=== PATIENT | female | born 1995 | race Caucasian/White ===

== ENCOUNTER 2020-09-18 15:08 | Emergency (ER) | payer OTHER ==
--- OUTSIDE RECORDS SUMMARY | 2020-09-18 15:12 | XMS REPORT | Continuity of Care Document ---
:[address] [facility] t Address 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 Social History Smoking Status Start Date Stop Date Source Former Smoker [facility] Medications Ordered Filled Start Stop Current Ordering Indication Dosage Frequency Signature Comments Components Source Medication Medication Date Date Medication? Clinician (SIG) Name Name Nexplanon Nexplanon No Nexplanon [place] 68 mg 68 mg 4-19 68 mg da subdermal subdermal 14:05: subdermal [facility] implant[facility] implant[facility]je [address] 1 ect 1 implant by implant by implant by subcutaneou subcutaneou subcutaneo s route. s route. us route. bupropion bupropion No 1 Q1D bupropion [place] HCl XL 150 HCl XL 150 HCl XL 150 da mg 24 hr mg 24 hr mg 24 hr Med ical tablet, tablet, tablet, Group extended extended extended release release release Take 1 Take 1 Take 1 tablet tablet tablet every day every day every day by oral by oral by oral route. route. route. Nexplanon Nexplanon No 1implan Nexplanon [place] 68 mg 68 mg t(s) 68 mg da subdermal subdermal subdermal Medical implant implant implant Group Inject 1 Inject 1 Inject 1 implant by implant by implant by subcutaneou subcutaneou subcutaneo s route. s route. us route. Vital Signs Vital Name Observation Time Observation Value Comments Source BP Diastolic 2020-08-27 00:00:00 79 mm[Hg] [facility] Height 2020-08-27 00:00:00 63 [in_i] [facility] BMI (Body Mass 2020-08-27 00:00:00 16.9 kg/m2 [facility] [employer] [facility] Medical Index) Group BP Systolic 2020-08-27 00:00:00 129 mm[Hg] [facility] Body Weight 2020-08-27 00:00:00 95.2 [lb_av] [facility] BP Diastolic 2020-07-31 00:00:00 88 mm[Hg] [facility] Height 2020-07-31 00:00:00 63 [in_i] [facility] BMI (Body Mass 2020-07-31 00:00:00 18 kg/m2 [facility] [employer] [facility] Medical Index) Group BP Systolic 2020-07-31 00:00:00 134 mm[Hg] [facility] Body Weight 2020-07-31 00:00:00 101.4 [lb_av] [facility] BP Diastolic 2020-05-01 00:00:00 88 mm[Hg] [facility] Height 2020-05-01 00:00:00 63 [in_i] [facility] BMI (Body Mass 2020-05-01 00:00:00 23.7 kg/m2 [facility] [employer] [facility] Medical Index) Group BP Systolic 2020-05-01 00:00:00 128 mm[Hg] [facility] Body Weight 2020-05-01 00:00:00 133.6 [lb_av] [facility] BP Diastolic 2020-04-26 00:00:00 79 mm[Hg] [facility] Height 2020-04-26 00:00:00 63 [in_i] [facility] BMI (Body Mass 2020-04-26 00:00:00 [facility] [facility] BP Systolic 2020-04-26 00:00:00 121 mm[Hg] [facility] Body Weight 2020-04-26 00:00:00 132 [lb_av] [facility] BP Diastolic 2020-04-16 00:00:00 63 mm[Hg] [facility] Height 2020-04-16 00:00:00 63 [in_i] [facility] BMI (Body Mass 2020-04-16 00:00:00 22.5 kg/m2 [facility] [employer] [facility] Medical Index) Group BP Systolic 2020-04-16 00:00:00 134 mm[Hg] [facility] Body Weight 2020-04-16 00:00:00 127 [lb_av] [facility] BP Diastolic 2020-03-30 00:00:00 85 mm[Hg] [facility] Height 2020-03-30 00:00:00 63 [in_i] [facility] BMI (Body Mass 2020-03-30 00:00:00 21.4 kg/m2 [facility] Medical Index) Group BP Systolic 2020-03-30 00:00:00 136 mm[Hg] [facility] Body Weight 2020-03-30 00:00:00 121 [lb_av] [facility] BP Diastolic 2020-02-24 00:00:00 74 mm[Hg] [facility] Height 2020-02-24 00:00:00 63 [in_i] [facility] BMI (Body Mass 2020-02-24 00:00:00 21.9 kg/m2 [facility] Medical Index) Group BP Systolic 2020-02-24 00:00:00 120 mm[Hg] [facility] Body Weight 2020-02-24 00:00:00 123.4 [lb_av] [facility] BP Diastolic 2018-11-25 00:00:00 81 mm[Hg] [facility] Height 2018-11-25 00:00:00 63 [in_i] [facility] BMI (Body Mass 2018-11-25 00:00:00 22.7 kg/m2 [facility] Medical Index) Group BP Systolic 2018-11-25 00:00:00 125 mm[Hg] [facility] Body Weight 2018-11-25 00:00:00 127.9 [lb_av] [facility] BP Diastolic 2018-11-18 00:00:00 83 mm[Hg] [facility] Height 2018-11-18 00:00:00 63 [in_i] [facility] BMI (Body Mass 2018-11-18 00:00:00 22.3 kg/m2 [facility] Group BP Systolic 2018-11-18 00:00:00 130 mm[Hg] [facility] Body Weight 2018-11-18 00:00:00 126 [lb_av] [facility] BP Diastolic 2018-11-04 00:00:00 72 mm[Hg] [facility] Height 2018-11-04 00:00:00 63 [in_i] [facility] BMI (Body Mass 2018-11-04 00:00:00 22.3 kg/m2 [facility] Medical Index) Group BP Systolic 2018-11-04 00:00:00 115 mm[Hg] [facility] Body Weight 2018-11-04 00:00:00 126.1 [lb_av] [facility] BP Diastolic 2018-10-28 00:00:00 76 mm[Hg] [facility] Height 2018-10-28 00:00:00 63 [in_i] [facility] BMI (Body Mass 2018-10-28 00:00:00 22.3 kg/m2 [facility] Medical Index) Group BP Systolic 2018-10-28 00:00:00 121 mm[Hg] [facility] Body Weight 2018-10-28 00:00:00 125.9 [lb_av] [facility] BP Diastolic 2018-10-21 00:00:00 78 mm[Hg] [facility] Height 2018-10-21 00:00:00 63 [in_i] [facility] BMI (Body Mass 2018-10-21 00:00:00 22 kg/m2 [facility] Medical Index) Group BP Systolic 2018-10-21 00:00:00 114 mm[Hg] [facility] Body Weight 2018-10-21 00:00:00 124 [lb_av] [facility] BP Diastolic 2018-07-19 00:00:00 84 mm[Hg] [facility] Height 2018-07-19 00:00:00 63 [in_i] [facility] BMI (Body Mass 2018-07-19 00:00:00 23.2 kg/m2 [facility] Medical Index) Group BP Systolic 2018-07-19 00:00:00 129 mm[Hg] [facility] Body Weight 2018-07-19 00:00:00 131 [lb_av] [facility] Procedures Procedure Date / Time Performing Clinician Source Performed US, obstetric, limited 2020-04-26 00:00:00 [facility] US, obstetric, limited 2020-03-30 00:00:00 [facility] ULTRASOUND, 2020-02-24 [facility] WITH Group IMAGE DOC, AND MATERNAL EVAL PLUS DETAILED ANATOMIC EXAMINATION, TRANSABDOMINAL APPROACH; SINGLE OR FIRST GESTATION US, transvaginal 2018-11-25 00:00:00 [facility] Dilation & Curettage 2018-11-19 00:00:00 Jennifer [facility] (Surg) Group ULTRASOUND, 2018-11-04 [facility] WITH Group IMAGE DOCUMENTAITON, TRANSVAGINAL Plan of Care Planned Activity Planned Date Details Comments Source Diagnostic Test 2020-08-27 test, [facility] 00:00:00 urine [code = Group test, urine] Encounters Start End Encounter Admission Attending Care Care Encounter Source Date/Time Date/Time Type Type Clinicians Facility Department ID 2020-08-27 2020-08-27 Tod MURILLO [place] - [id number] M [facility] 00:00:00 00:00:00 [facility] xochitl Guadalupe MD: [address] [place] [address] , Ph. [phone] 2020-07-31 2020-07-31 Tod MURILLO [place] - [id number] Cathy [facility] 00:00:00 00:00:00 [facility] xochitl Guadalupe MD: [address] [place] [address] , Ph. [phone] 2020-07-23 2020-07-23 Emergency Carl, [facility] [id number] 19:13:00 23:08:00 Rashad Hale [id number] [place] [id number] [place] [id number] 2020-05-01 2020-05-01 Tod MURILLO [place] - [id number] M [facility] 00:00:00 00:00:00 Discovery xochitl Guadalupe MD: [address] [place] [address] , Ph. [phone] 2020-04-26 2020-04-26 Tod MURILLO [place] - [id number] M [facility] 00:00:00 00:00:00 Discovery xochitl Guadalupe MD: [address] [place] [address] , Ph. [phone] 2020-04-21 2020-04-22 Hospital Lore Cooper [facility] [id number] 23:10:00 08:10:00 Encounter Geoffrey [id number] [place] [id number] [place] [id number] 2020-04-16 2020-04-16 Tod MURILLO [place] - [id number] M [facility] 00:00:00 00:00:00 Discovery xochitl Guadalupe MD: [address] [place] [address] , Ph. [phone] 2020-04-13 2020-04-13 [facility] [id number] 09:17:00 13:55:00 Encounter Susan Beebe Geoffrey [id number] [place] [id number] [place] [id number] 2020-04-13 2020-04-13 Orders Doctor BAUGH [id number] 00:00:00 00:00:00 Only Unassigned, KEVEN [id number] [place] [id number] 2020-03-30 2020-03-30 Tod MURILLO [place] - [id number] M [facility] 00:00:00 00:00:00 Discovery xochitl Guadalupe MD: [address] [place] [address] , Ph. [phone] 2020-02-24 2020-02-24 Tod MURILLO [place] - [id number] M [facility] 00:00:00 00:00:00 Discovery xochitl Guadalupe MD: [address] [place] [address] , Ph. [phone] 2018-11-25 2018-11-25 Tod MURILLO [place] - [id number] M [facility] 00:00:00 00:00:00 Discovery xochitl Guadalupe MD: [address] [place] [address] , Ph. [phone] 2018-11-18 2018-11-18 Tod MURILLO [place] - [id number] M [facility] 00:00:00 00:00:00 Discovery xochitl Guadalupe MD: [address] [place] [address] , Ph. [phone] 2018-11-04 2018-11-04 Tod MURILLO [place] - [id number] M [facility] 00:00:00 00:00:00 Discovery xochitl Guadalupe MD: [address] [place] [address] , Ph. [phone] 2018-10-28 2018-10-28 Tod MURILLO [place] - [id number] M [facility] 00:00:00 00:00:00 Discovery xochitl Guadalupe MD: [address] [place] [address] , Ph. [phone] 2018-10-21 2018-10-21 Ирина VU [place] - [id number] M [facility] 00:00:00 00:00:00 [facility] keely MD: [address] [place] [address] , Ph. [phone] 2018-07-19 2018-07-19 Danita Godwin [facility] [place] - [id number] [place] 00:00:00 00:00:00 Discovery xochitl Loza WHNP: [address] [facility] [address], [facility] [address] , Ph. [phone] Results Test Description Test Time Test Comments Results Result Comments Source test, urine 2020-08-27 14:10:18 Test Item Value Reference Range Interpretation Comme nts Test (test code = Test) negative [facility]dipstick) panel - [id number] 15:37:00 Test Item Value Reference Range Interpretation Comments Leukocytes (test code = Leukocytes) Trace Nitrite (test code = Nitrite) negative Urobilinogen (test code = 2 Urobilinogen) Protein (test code = Protein) 30 pH (test code = pH) 6.0 Blood (test code = Blood) Negative Specific [place] (test code = 1.025 Specific [place]) Ketone (test code = Ketone) Trace Bilirubin (test code = Bilirubin) Small Glucose (test code = Glucose) 100 Appearance (test code = Appearance) Clear Color (test code = Color) Yellow [facility] complete panel - [id number] 07:30:00 Test Item Value Reference Range Interpretation Comments Color of Urine by Auto (test code = yellow 06111-4) Appearance of Urine (test code = SL cloudy clear A 5767-9) Glucose [Presence] in Urine by negative negative Automated test strip (test code = 80889-5) Bilirubin.total [Mass/volume] in negative negative Urine (test code = 1978-6) Ketones [Mass/volume] in Urine by negative negative Automated test strip (test code = 86652-3) Specific gravity of Urine by 1.025 1.003-1.030 Automated test strip (test code = 76429-6) blood urine (test code = blood trace negative urine) pH of Urine (test code = 2756-5) 6.500 5-9 protein urine (UA) (test code = trace negative protein urine (UA)) Urobilinogen [Presence] in Urine =2.0 0.2-1.0 H (test code = 21294-1) Nitrite [Presence] in Urine by Test negative negative strip (test code = 5802-4) Leukocyte esterase [Presence] in =3 negative H Urine by Automated test strip (test code = 98030-0) Erythrocytes [#/volume] in Urine by =1-5 0-5 Automated count (test code = 798-9) Leukocytes [#/area] in Urine =6-10 0-5 H sediment by Automated count (test code = 95154-0) Epithelial cells [Presence] in =30-49 0-5 Urine sediment by Light microscopy (test code = 02571-0) Bacteria identified in Urine by large (3 none detect H Culture (test code = 630-4) Casts [#/area] in Urine sediment by =2-5 none detect Automated count (test code = 78511-3) urine culture added? (test code = yes urine culture added?) [facility] Group[facility] complete panel - [id number] 07:00:00 Test Item Value Reference Range Interpretation Comments Color of Urine by Auto yellow (test code = 69291-6) Appearance of Urine (test SL cloudy clear A code = 5767-9) Glucose [Presence] in Urine negative negative by Automated test strip (test code = 21596-1) Bilirubin.total negative negative [Mass/volume] in Urine (test code = 1978-6) Ketones [Mass/volume] in negative negative Urine by Automated test strip (test code = 15822-7) Specific gravity of Urine 1.026 1.003-1.030 by Automated test strip (test code = 82795-5) blood urine (test code = negative negative blood urine) pH of Urine (test code = 7.000 5-9 2756-5) protein urine (UA) (test =1+ (30 negative H code = protein urine (UA)) Urobilinogen [Presence] in =2.0 0.2-1.0 H Urine (test code = 70463-7) Nitrite [Presence] in Urine negative negative by Test strip (test code = 5802-4) Leukocyte esterase =3 negative H [Presence] in Urine by Automated test strip (test code = 36940-3) Erythrocytes [#/volume] in =1-5 0-5 Urine by Automated count (test code = 798-9) Leukocytes [#/area] in =11-14 0-5 H Urine sediment by Automated count (test code = 19656-0) Epithelial cells [Presence] =20-29 0-5 in Urine sediment by Light microscopy (test code = 77613-8) Bacteria identified in moderate (2 none detect H Urine by Culture (test code = 630-4) Casts [#/area] in Urine =6-10 none detect H sediment by Automated count (test code = 45751-3) urine culture added? (test no. contaminated. code = urine culture added?) Pathologic casts [Presence] none seen none detect in Urine by Automated (test code = 44866-2) [facility] macro (dipstick) panel - [id number] 14:22:34 Test Item Value Reference Range Interpretation Comments Leukocytes (test code = Leukocytes) Negative Nitrite (test code = Nitrite) negative Urobilinogen (test code = 2 Urobilinogen) Protein (test code = Protein) 30 pH (test code = pH) 7.5 Blood (test code = Blood) Negative Specific [place] (test code = 1.020 Specific [place]) Ketone (test code = Ketone) Small Bilirubin (test code = Bilirubin) Small Glucose (test code = Glucose) 100 Appearance (test code = Appearance) Clear Color (test code = Color) Yellow [facility] macro (dipstick) panel - [id number] 14:22:34 Test Item Value Reference Range Interpretation Comments Leukocytes (test code = Leukocytes) Negative Nitrite (test code = Nitrite) negative Urobilinogen (test code = 2 Urobilinogen) Protein (test code = Protein) 30 pH (test code = pH) 7.5 Blood (test code = Blood) Negative Specific [place] (test code = 1.020 Specific [place]) Ketone (test code = Ketone) Small Bilirubin (test code = Bilirubin) Small Glucose (test code = Glucose) 100 Appearance (test code = Appearance) Clear Color (test code = Color) Yellow [facility] Hospital[facility] W Auto Differential panel - [id number] 02:04:00 Test Item Value Reference Range Interpretation Comments white blood count (test code = 7.5 K/uL 4.0-11.5 white blood count) red blood count (test code = red 3.35 M/uL 3.80-5.20 L blood count) hemoglobin (test code = 9.6 g/dL 10.5-15.7 L hemoglobin) hematocrit (test code = 30.0 % 34.0-50.0 L hematocrit) MCV [Entitic volume] (test code = 89.6 fL 86-100 00635-5) mean corpuscular hemoglobin (test 28.7 pg 26.2-33.4 code = mean corpuscular hemoglobin) mean corpuscular HGB conc (test 32.0 g/dL 30-34 code = mean corpuscular HGB conc) red cell distribution width (test 11.9 % 12.0-15.5 L code = red cell distribution width) platelet count (test code = 283 K/uL 165-450 platelet count) mean platelet volume (test code = 10.9 fL 9.4-12.6 mean platelet volume) Segmented neutrophils/100 72.2 % 44.4-80.1 leukocytes in Blood (test code = 12905-7) Immature granulocytes [#/volume] 0.0 K/uL 0.0-0.03 in Blood (test code = 71248-1) lymphocyte% (test code = 18.9 % 10.0-50.0 lymphocyte%) mono % (test code = mono %) 6.7 % 3.6-12.0 eos % (test code = eos %) 1.5 % 0.0-5.4 Basophils/100 leukocytes in 0.3 % 0.1-1.2 Unspecified specimen (test code = 35335-1) Band form neutrophils [#/volume] 5.39 K/uL 1.56-6.13 in Blood (test code = 77837-5) Lymphocytes [#/volume] in 1.4 K/uL 1.18-3.74 Unspecified specimen by Automated count (test code = 17906-2) mono # (test code = mono #) 0.50 K/uL 0.24-0.86 eos # (test code = eos #) 0.11 K/uL 0.04-0.36 basophil # (test code = basophil 0.02 K/uL 0.01-0.08 #) NRBC% (test code = NRBC%) 0 /100 WBC 0-0.2 NRBC# (test code = NRBC#) 0 K/uL [facility] GroupMicroscopic observation [Identifier] in Unspecified specimen by Wet [id number] 03:50:00 Test Item Value Reference Range Interpretation Comments Microscopic observation no trichomonas, [Identifier] in yeast or clue cell Unspecified specimen by observed. Wet preparation (test code = 680-9) [facility] Hospital[facility]lamydia trachomatis+Neisseria gonorrhoeae rRNA [Presence] in Unspecified specimen by [id number] 03:50:00 Test Item Value Reference Range Interpretation Comments Chlamydia sp Ag [Presence] in CT not detected Unspecified specimen (test code = 50603-1) [id number] (test code = exu9619) NG not detected [facility] HospitalKlgysDtmij-1-Ishydjkhddpou.placental [Presence] in Vaginal [id number] 02:38:00 Test Item Value Reference Range Interpretation Comments Ufpih-4-Kgucnypktbqck.placental negative neg [Presence] in Vaginal fluid (test code = 30463-2) [facility] Hospital[facility]ysis complete panel - [id number] 02:38:00 Test Item Value Reference Range Interpretation Comments Color of Urine by Auto (test yellow code = 43003-3) Appearance of Urine (test code clear clear = 5767-9) Glucose [Presence] in Urine by negative negative Automated test strip (test code = 59491-7) Bilirubin.total [Mass/volume] negative negative in Urine (test code = 1978-6) Ketones [Mass/volume] in Urine negative negative by Automated test strip (test code = 02455-2) Specific gravity of Urine by 1.019 1.003-1.030 Automated test strip (test code = 87193-6) blood urine (test code = blood negative negative urine) pH of Urine (test code = 7.500 5-9 2756-5) protein urine (UA) (test code = trace negative protein urine (UA)) Urobilinogen [Presence] in =2.0 0.2-1.0 H Urine (test code = 30162-6) Nitrite [Presence] in Urine by negative negative Test strip (test code = 5802-4) Leukocyte esterase [Presence] negative negative in Urine by Automated test strip (test code = 19202-0) Erythrocytes [#/volume] in <1 0-5 Urine by Automated count (test code = 798-9) Leukocytes [#/area] in Urine <1 0-5 sediment by Automated count (test code = 28828-9) Epithelial cells [Presence] in =1-5 0-5 Urine sediment by Light microscopy (test code = 31349-3) Bacteria identified in Urine by none detected none detect Culture (test code = 630-4) Casts [#/area] in Urine =2-5 none detect sediment by Automated count (test code = 23099-7) urine culture added? (test code no = urine culture added?) [facility] HospitalVjlteIofmm-7-Gebnrbkgvkyfe.placental [Presence] in Vaginal [id number] 02:38:00 Test Item Value Reference Range Interpretation Comments Rohar-8-Owlugmmbmhhni.placental negative neg [Presence] in Vaginal fluid (test code = 31901-1) [facility] HospitalUr[facility]ysis complete panel - [id number] 02:38:00 Test Item Value Reference Range Interpretation Comments Color of Urine by Auto (test yellow code = 72556-1) Appearance of Urine (test code clear clear = 5767-9) Glucose [Presence] in Urine by negative negative Automated test strip (test code = 90321-1) Bilirubin.total [Mass/volume] negative negative in Urine (test code = 1978-6) Ketones [Mass/volume] in Urine negative negative by Automated test strip (test code = 49631-2) Specific gravity of Urine by 1.019 1.003-1.030 Automated test strip (test code = 53450-6) blood urine (test code = blood negative negative urine) pH of Urine (test code = 7.500 5-9 2756-5) protein urine (UA) (test code = trace negative protein urine (UA)) Urobilinogen [Presence] in =2.0 0.2-1.0 H Urine (test code = 68815-3) Nitrite [Presence] in Urine by negative negative Test strip (test code = 5802-4) Leukocyte esterase [Presence] negative negative in Urine by Automated test strip (test code = 16706-1) Erythrocytes [#/volume] in <1 0-5 Urine by Automated count (test code = 798-9) Leukocytes [#/area] in Urine <1 0-5 sediment by Automated count (test code = 95069-0) Epithelial cells [Presence] in =1-5 0-5 Urine sediment by Light microscopy (test code = 40688-9) Bacteria identified in Urine by none detected none detect Culture (test code = 630-4) Casts [#/area] in Urine =2-5 none detect sediment by Automated count (test code = 83923-1) urine culture added? (test code no = urine culture added?) [facility] [Mass/volume] in Serum or Plasma --1 hour post dose [id number] 16:04:00 Test Item Value Reference Range Interpretation Comments Results (test code = Results) 126 [facility] GroupGlucose [Mass/volume] in Serum or Plasma --1 hour post dose [id number] 16:04:00 Test Item Value Reference Range Interpretation Comments Results (test code = Results) 126 [facility] GroupGlucose [Mass/volume] in Serum or Plasma --1 hour post dose [id number] 16:04:00 Test Item Value Reference Range Interpretation Comments Results (test code = Results) 126 [facility] Groupculture, vaginal/rectal, streptococcus group [id number] 00:00:00 Test Item Value Reference Range Interpretation Comments group B strep (test abnormal A code = group B strep) group B strep rflx please see A sens if pos (test results/comment code = group B strep rflx sens if pos) [facility] Groupculture, vaginal/rectal, streptococcus group [id number] 00:00:00 Test Item Value Reference Range Interpretation Comments group B strep (test abnormal A code = group B strep) group B strep rflx please see A sens if pos (test results/comment code = group B strep rflx sens if pos) [facility] GroupUrinalysis macro (dipstick) panel - [id number] 15:41:10 Test Item Value Reference Range Interpretation Comments Leukocytes (test code = Trace Leukocytes) Nitrite (test code = negative Nitrite) Urobilinogen (test code = 2 Urobilinogen) Protein (test code = 30 Protein) pH (test code = pH) 7.0 Blood (test code = Blood) Non-Hemolyzed: Trace Specific [place] (test 1.025 code = Specific [place]) Ketone (test code = Negative Ketone) Bilirubin (test code = Negative Bilirubin) Glucose (test code = Negative Glucose) Appearance (test code = Clear Appearance) Color (test code = Color) Yellow [facility]dipstick[facility] panel - [id number] 15:41:10 Test Item Value Reference Range Interpretation Comments Leukocytes (test code = Trace Leukocytes) Nitrite (test code = negative Nitrite) Urobilinogen (test code = 2 Urobilinogen) Protein (test code = 30 Protein) pH (test code = pH) 7.0 Blood (test code = Blood) Non-Hemolyzed: Trace Specific [place] (test 1.025 code = Specific [place]) Ketone (test code = Negative Ketone) Bilirubin (test code = Negative Bilirubin) Glucose (test code = Negative Glucose) Appearance (test code = Clear Appearance) Color (test code = Color) Yellow [facility] (dipstick) panel - [id number] 15:41:10 Test Item Value Reference Range Interpretation Comments Leukocytes (test code = Trace Leukocytes) Nitrite (test code = negative Nitrite) Urobilinogen (test code = 2 Urobilinogen) Protein (test code = 30 Protein) pH (test code = pH) 7.0 Blood (test code = Blood) Non-Hemolyzed: Trace Specific [place] (test 1.025 code = Specific [place]) Ketone (test code = Negative Ketone) Bilirubin (test code = Negative Bilirubin) Glucose (test code = Negative Glucose) Appearance (test code = Clear Appearance) Color (test code = Color) [facility] W Auto Differential panel - [id number] 02:55:00 Test Item Value Reference Range Interpretation Comments white blood count (test code = 7.2 K/uL 4.0-11.5 white blood count) red blood count (test code = red 3.07 M/uL 3.80-5.20 L blood count) hemoglobin (test code = 9.4 g/dL 10.5-15.7 L hemoglobin) hematocrit (test code = 28.6 % 34.0-50.0 L hematocrit) MCV [Entitic volume] (test code = 93.2 fL 86-100 55361-2) mean corpuscular hemoglobin (test 30.6 pg 26.2-33.4 code = mean corpuscular hemoglobin) mean corpuscular HGB conc (test 32.9 g/dL 30-34 code = mean corpuscular HGB conc) red cell distribution width (test 11.8 % 12.0-15.5 L code = red cell distribution width) platelet count (test code = 279 K/uL 165-450 platelet count) mean platelet volume (test code = 9.7 fL 9.4-12.6 mean platelet volume) Segmented neutrophils/100 75.2 % 44.4-80.1 leukocytes in Blood (test code = 29861-2) Immature granulocytes [#/volume] 0.0 K/uL 0.0-0.03 in Blood (test code = 82761-5) lymphocyte% (test code = 19.4 % 10.0-50.0 lymphocyte%) mono % (test code = mono %) 4.3 % 3.6-12.0 eos % (test code = eos %) 0.7 % 0.0-5.4 Basophils/100 leukocytes in 0.1 % 0.1-1.2 Unspecified specimen (test code = 67572-0) Band form neutrophils [#/volume] 5.44 K/uL 1.56-6.13 in Blood (test code = 99381-3) Lymphocytes [#/volume] in 1.4 K/uL 1.18-3.74 Unspecified specimen by Automated count (test code = 51610-8) mono # (test code = mono #) 0.31 K/uL 0.24-0.86 eos # (test code = eos #) 0.05 K/uL 0.04-0.36 basophil # (test code = basophil 0.01 K/uL 0.01-0.08 #) NRBC% (test code = NRBC%) 0 /100 WBC 0-0.2 NRBC# (test code = NRBC#) 0 K/uL [facility] W Auto Differential panel - [id number] 02:55:00 Test Item Value Reference Range Interpretation Comments white blood count (test code = 7.2 K/uL 4.0-11.5 white blood count) red blood count (test code = red 3.07 M/uL 3.80-5.20 L blood count) hemoglobin (test code = 9.4 g/dL 10.5-15.7 L hemoglobin) hematocrit (test code = 28.6 % 34.0-50.0 L hematocrit) MCV [Entitic volume] (test code = 93.2 fL 86-100 26245-8) mean corpuscular hemoglobin (test 30.6 pg 26.2-33.4 code = mean corpuscular hemoglobin) mean corpuscular HGB conc (test 32.9 g/dL 30-34 code = mean corpuscular HGB conc) red cell distribution width (test 11.8 % 12.0-15.5 L code = red cell distribution width) platelet count (test code = 279 K/uL 165-450 platelet count) mean platelet volume (test code = 9.7 fL 9.4-12.6 mean platelet volume) Segmented neutrophils/100 75.2 % 44.4-80.1 leukocytes in Blood (test code = 58043-1) Immature granulocytes [#/volume] 0.0 K/uL 0.0-0.03 in Blood (test code = 38392-0) lymphocyte% (test code = 19.4 % 10.0-50.0 lymphocyte%) mono % (test code = mono %) 4.3 % 3.6-12.0 eos % (test code = eos %) 0.7 % 0.0-5.4 Basophils/100 leukocytes in 0.1 % 0.1-1.2 Unspecified specimen (test code = 70591-9) Band form neutrophils [#/volume] 5.44 K/uL 1.56-6.13 in Blood (test code = 89992-7) Lymphocytes [#/volume] in 1.4 K/uL 1.18-3.74 Unspecified specimen by Automated count (test code = 99388-3) mono # (test code = mono #) 0.31 K/uL 0.24-0.86 eos # (test code = eos #) 0.05 K/uL 0.04-0.36 basophil # (test code = basophil 0.01 K/uL 0.01-0.08 #) NRBC% (test code = NRBC%) 0 /100 WBC 0-0.2 NRBC# (test code = NRBC#) 0 K/uL [facility] - [id number] 11:00:00 Test Item Value Reference Range Interpretation Comments Color of Urine by Auto (test code = yellow 46170-5) Appearance of Urine (test code = clear clear 5767-9) Glucose [Presence] in Urine by negative negative Automated test strip (test code = 56212-7) Bilirubin.total [Mass/volume] in negative negative Urine (test code = 1978-6) Ketones [Mass/volume] in Urine by negative negative Automated test strip (test code = 21345-6) Specific gravity of Urine by 1.026 1.003-1.030 Automated test strip (test code = 43472-9) blood urine (test code = blood negative negative urine) pH of Urine (test code = 2756-5) 6.500 5-9 protein urine (UA) (test code = trace negative protein urine (UA)) Urobilinogen [Presence] in Urine =2.0 0.2-1.0 H (test code = 40310-6) Nitrite [Presence] in Urine by Test negative negative strip (test code = 5802-4) Leukocyte esterase [Presence] in =2 negative H Urine by Automated test strip (test code = 59967-2) Erythrocytes [#/volume] in Urine by =1-5 0-5 Automated count (test code = 798-9) Leukocytes [#/area] in Urine =1-5 0-5 sediment by Automated count (test code = 70917-1) Epithelial cells [Presence] in Urine =6-10 0-5 sediment by Light microscopy (test code = 81268-8) Bacteria identified in Urine by trace none detect Culture (test code = 630-4) urine culture added? (test code = yes urine culture added?) Mucus [Presence] in Urine by =2 none detect Automated (test code = 60204-2) [facility] identified in Urine by [id number] 11:00:00 Test Item Value Reference Range Interpretation Comments Bacteria identified in no growth after 2 Urine by Culture (test days code = 630-4) [facility] GroupUr[facility] macro (dipstick) panel - [id number] 15:22:00 Test Item Value Reference Range Interpretation Comments Leukocytes (test code = Leukocytes) Negative Nitrite (test code = Nitrite) negative Urobilinogen (test code = 1 Urobilinogen) Protein (test code = Protein) Negative pH (test code = pH) 6.5 Blood (test code = Blood) Negative Specific [place] (test code = 1.025 Specific [place]) Ketone (test code = Ketone) Negative Bilirubin (test code = Bilirubin) Negative Glucose (test code = Glucose) Negative Appearance (test code = Appearance) Clear Color (test code = Color) Yellow [facility]Ur[facility] (dipstick) panel - [id number] 11:08:00 Test Item Value Reference Range Interpretation Comments Leukocytes (test code = Leukocytes) Trace Nitrite (test code = Nitrite) negative Urobilinogen (test code = .2 Urobilinogen) Protein (test code = Protein) Negative pH (test code = pH) 7.0 Blood (test code = Blood) Moderate Specific [place] (test code = 1.025 Specific [place]) Ketone (test code = Ketone) Negative Bilirubin (test code = Bilirubin) Negative Glucose (test code = Glucose) Negative Appearance (test code = Appearance) Clear Color (test code = Color) Yellow [facility]Ur[facility] macro (dipstick) panel - [id number] 11:08:00 Test Item Value Reference Range Interpretation Comments Leukocytes (test code = Leukocytes) Trace Nitrite (test code = Nitrite) negative Urobilinogen (test code = .2 Urobilinogen) Protein (test code = Protein) Negative pH (test code = pH) 7.0 Blood (test code = Blood) Moderate Specific [place] (test code = 1.025 Specific [place]) Ketone (test code = Ketone) Negative Bilirubin (test code = Bilirubin) Negative Glucose (test code = Glucose) Negative Appearance (test code = Appearance) Clear Color (test code = Color) Yellow [facility]Ur[facility] (dipstick) panel - [id number] 16:21:48 Test Item Value Reference Range Interpretation Comments Leukocytes (test code = Leukocytes) Trace Nitrite (test code = Nitrite) negative Urobilinogen (test code = .2 Urobilinogen) Protein (test code = Protein) Negative pH (test code = pH) 5.5 Blood (test code = Blood) Negative Specific [place] (test code = 1.020 Specific [place]) Ketone (test code = Ketone) Negative Bilirubin (test code = Bilirubin) Negative Glucose (test code = Glucose) Negative Appearance (test code = Appearance) Clear Color (test code = Color) Yellow [facility]Ur[facility] macro (dipstick) panel - [id number] 16:21:48 Test Item Value Reference Range Interpretation Comments Leukocytes (test code = Leukocytes) Trace Nitrite (test code = Nitrite) negative Urobilinogen (test code = .2 Urobilinogen) Protein (test code = Protein) Negative pH (test code = pH) 5.5 Blood (test code = Blood) Negative Specific [place] (test code = 1.020 Specific [place]) Ketone (test code = Ketone) Negative Bilirubin (test code = Bilirubin) Negative Glucose (test code = Glucose) Negative Appearance (test code = Appearance) Clear Color (test code = Color) Yellow [facility]Ur[facility] (dipstick) panel - [id number] 16:21:48 Test Item Value Reference Range Interpretation Comments Leukocytes (test code = Leukocytes) Trace Nitrite (test code = Nitrite) negative Urobilinogen (test code = .2 Urobilinogen) Protein (test code = Protein) Negative pH (test code = pH) 5.5 Blood (test code = Blood) Negative Specific [place] (test code = 1.020 Specific [place]) Ketone (test code = Ketone) Negative Bilirubin (test code = Bilirubin) Negative Glucose (test code = Glucose) Negative Appearance (test code = Appearance) Clear Color (test code = Color) [facility] - [id number] 14:18:19 Test Item Value Reference Range Interpretation Comments Leukocytes (test code = Small Leukocytes) Nitrite (test code = Nitrite) negative Urobilinogen (test code = .2 Urobilinogen) Protein (test code = Protein) Negative pH (test code = pH) 6.0 Blood (test code = Blood) Negative Specific [place] (test code = 1.025 Specific [place]) Ketone (test code = Ketone) Negative Bilirubin (test code = Negative Bilirubin) Glucose (test code = Glucose) Negative Appearance (test code = Slightly Cloudy Appearance) Color (test code = Color) Yellow [facility]Ur[facility] (dipstick) panel - [id number] 14:18:19 Test Item Value Reference Range Interpretation Comments Leukocytes (test code = Small Leukocytes) Nitrite (test code = Nitrite) negative Urobilinogen (test code = .2 Urobilinogen) Protein (test code = Protein) Negative pH (test code = pH) 6.0 Blood (test code = Blood) Negative Specific [place] (test code = 1.025 Specific [place]) Ketone (test code = Ketone) Negative Bilirubin (test code = Negative Bilirubin) Glucose (test code = Glucose) Negative Appearance (test code = Slightly Cloudy Appearance) Color (test code = Color) Yellow [facility]Ur[facility] (dipstick) panel - [id number] 14:18:19 Test Item Value Reference Range Interpretation Comments Leukocytes (test code = Small Leukocytes) Nitrite (test code = Nitrite) negative Urobilinogen (test code = .2 Urobilinogen) Protein (test code = Protein) Negative pH (test code = pH) 6.0 Blood (test code = Blood) Negative Specific [place] (test code = 1.025 Specific [place]) Ketone (test code = Ketone) Negative Bilirubin (test code = Negative Bilirubin) Glucose (test code = Glucose) Negative Appearance (test code = Slightly Cloudy Appearance) Color (test code = Color) Yellow [facility] HospitalUr[facility] (dipstick) panel - [id number] 14:18:19 Test Item Value Reference Range Interpretation Comments Leukocytes (test code = Small Leukocytes) Nitrite (test code = Nitrite) negative Urobilinogen (test code = .2 Urobilinogen) Protein (test code = Protein) Negative pH (test code = pH) 6.0 Blood (test code = Blood) Negative Specific [place] (test code = 1.025 Specific [place]) Ketone (test code = Ketone) Negative Bilirubin (test code = Negative Bilirubin) Glucose (test code = Glucose) Negative Appearance (test code = Slightly Cloudy Appearance) Color (test code = Color) Yellow [facility] HospitalChlamydia trachomatis+Neisseria gonorrhoeae DNA [Presence] in Cervix by Probe and target amplification [id number] 01:46:00 ResultsMatagorda Medical GroupMicroscopic observation [Identifier] in Cervix by Cyto stain.thin [id number] 01:46:00ResultsMatagorda Medical GroupChlamydia trachomatis+Neisseria gonorrhoeae DNA [Presence] in Cervix by Probe and target amplification [id number] 01:46:00ResultsField Memorial Community HospitalMicroscopic observation [Identifier] in Cervix by Cyto stain.thin [id number] 01:46:00 ResultsMaGreenwood Leflore HospitalChlamydia trachomatis+Neisseria gonorrhoeae DNA [Presence] in Cervix by Probe and target amplification [id number] 01:46:00 ResultsMataBatson Children's HospitalMicroscopic observation [Identifier] in Cervix by Cyto stain.thin [id number] 01:46:00ResultsField [facility] HospitalUrinalysis macro (dipstick) panel - [id number] 13:38:49 Test Item Value Reference Range Interpretation Comments Leukocytes (test code = Leukocytes) Small Nitrite (test code = Nitrite) negative Urobilinogen (test code = .2 Urobilinogen) Protein (test code = Protein) Negative pH (test code = pH) 7.0 Blood (test code = Blood) Negative Specific [place] (test code = 1.010 Specific [place]) Ketone (test code = Ketone) Negative Bilirubin (test code = Bilirubin) Negative Glucose (test code = Glucose) Negative Appearance (test code = Appearance) Clear Color (test code = Color) Yellow [facility] HospitalUrinalysis macro (dipstick) panel - [id number] 13:38:49 Test Item Value Reference Range Interpretation Comments Leukocytes (test code = Leukocytes) Small Nitrite (test code = Nitrite) negative Urobilinogen (test code = .2 Urobilinogen) Protein (test code = Protein) Negative pH (test code = pH) 7.0 Blood (test code = Blood) Negative Specific [place] (test code = 1.010 Specific [place]) Ketone (test code = Ketone) Negative Bilirubin (test code = Bilirubin) Negative Glucose (test code = Glucose) Negative Appearance (test code = Appearance) Clear Color (test code = Color) Yellow [facility] HospitalUrinalysis macro (dipstick) panel - [id number] 13:38:49 Test Item Value Reference Range Interpretation Comments Leukocytes (test code = Leukocytes) Small Nitrite (test code = Nitrite) negative Urobilinogen (test code = .2 Urobilinogen) Protein (test code = Protein) Negative pH (test code = pH) 7.0 Blood (test code = Blood) Negative Specific [place] (test code = 1.010 Specific [place]) Ketone (test code = Ketone) Negative Bilirubin (test code = Bilirubin) Negative Glucose (test code = Glucose) Negative Appearance (test code = Appearance) Clear Color (test code = Color) Yellow [facility] HospitalUrinalysis macro (dipstick) panel - [id number] 13:38:49 Test Item Value Reference Range Interpretation Comments Leukocytes (test code = Leukocytes) Small Nitrite (test code = Nitrite) negative Urobilinogen (test code = .2 Urobilinogen) Protein (test code = Protein) Negative pH (test code = pH) 7.0 Blood (test code = Blood) Negative Specific [place] (test code = 1.010 Specific [place]) Ketone (test code = Ketone) Negative Bilirubin (test code = Bilirubin) Negative Glucose (test code = Glucose) Negative Appearance (test code = Appearance) Clear Color (test code = Color) [facility]stick) panel - [id number] 13:38:49 Test Item Value Reference Range Interpretation Comments Leukocytes (test code = Leukocytes) Small Nitrite (test code = Nitrite) negative Urobilinogen (test code = .2 Urobilinogen) Protein (test code = Protein) Negative pH (test code = pH) 7.0 Blood (test code = Blood) Negative Specific [place] (test code = 1.010 Specific [place]) Ketone (test code = Ketone) Negative Bilirubin (test code = Bilirubin) Negative Glucose (test code = Glucose) Negative Appearance (test code = Appearance) Clear Color (test code = Color) Yellow [facility] HospitalUr[facility]ysis macro (dipstick) panel - [id number] 13:38:49 Test Item Value Reference Range Interpretation Comments Leukocytes (test code = Leukocytes) Small Nitrite (test code = Nitrite) negative Urobilinogen (test code = .2 Urobilinogen) Protein (test code = Protein) Negative pH (test code = pH) 7.0 Blood (test code = Blood) Negative Specific [place] (test code = 1.010 Specific [place]) Ketone (test code = Ketone) Negative Bilirubin (test code = Bilirubin) Negative Glucose (test code = Glucose) Negative Appearance (test code = Appearance) Clear Color (test code = Color) [facility] W Auto Differential panel - [id number] 10:18:00 Test Item Value Reference Range Interpretation Comments white blood count (test code = 9.2 K/uL 4.0-11.5 white blood count) red blood count (test code = red 4.28 M/uL 3.80-5.20 blood count) Hemoglobin [Mass/volume] in Blood 13.2 g/dL 10.5-15.7 (test code = 718-7) hematocrit (test code = hematocrit) 40.1 % 34.0-50.0 Erythrocyte mean corpuscular volume 93.7 fL 78-98 [Entitic volume] (test code = 54498-6) Erythrocyte mean corpuscular 31.0 pg 26.2-33.4 hemoglobin [Entitic mass] (test code = 22830-0) mean corpuscular HGB conc (test 33.0 g/dL 31.5-36.2 code = mean corpuscular HGB conc) red cell distribution width (test 11.8 % 11.5-15.5 code = red cell distribution width) Platelets [#/volume] in Blood (test 296 K/uL 137-338 code = 44147-2) Platelet mean volume [Entitic 5.9 fL 8.4-11.8 L volume] in Blood (test code = 84708-7) Neutrophils.band form/100 68.1 % 44.4-80.1 leukocytes in Blood (test code = 22409-0) Lymphocytes/100 leukocytes in Body 21.9 % 10.0-50.0 fluid (test code = 69682-7) Monocytes/100 leukocytes in Blood 3.7 % 3.6-12.0 by Automated count (test code = 5905-5) Eosinophils/100 leukocytes in Blood 5.9 % 0.0-5.4 H by Automated count (test code = 713-8) Basophils/100 leukocytes in 0.5 % 0.0-0.79 Unspecified specimen (test code = 34411-2) [facility] Hospitaldifferential panel, [id number] 10:18:00 NeutrophilsBandLymphocyteMonocytePlatelet EstimateMataBatson Children's HospitalRubella virus IgG Ab [Titer] in [id number] 10:18:00 Test Item Value Reference Range Interpretation Comments Rubella virus IgG Ab 56.87 [IU]/mL [Units/volume] in Serum by Immunoassay (test code = 5334-8) [facility] W Auto Differential panel - [id number] 00:00:00 Test Item Value Reference Range Interpretation Comments white blood count (test code = 9.2 K/uL 4.0-11.5 white blood count) red blood count (test code = red 4.28 M/uL 3.80-5.20 blood count) Hemoglobin [Mass/volume] in Blood 13.2 g/dL 10.5-15.7 (test code = 718-7) hematocrit (test code = hematocrit) 40.1 % 34.0-50.0 Erythrocyte mean corpuscular volume 93.7 fL 78-98 [Entitic volume] (test code = 70184-1) Erythrocyte mean corpuscular 31.0 pg 26.2-33.4 hemoglobin [Entitic mass] (test code = 79288-0) mean corpuscular HGB conc (test 33.0 g/dL 31.5-36.2 code = mean corpuscular HGB conc) red cell distribution width (test 11.8 % 11.5-15.5 code = red cell distribution width) Platelets [#/volume] in Blood (test 296 K/uL 137-338 code = 08483-5) Platelet mean volume [Entitic 5.9 fL 8.4-11.8 L volume] in Blood (test code = 14711-5) Neutrophils.band form/100 68.1 % 44.4-80.1 leukocytes in Blood (test code = 61205-3) Lymphocytes/100 leukocytes in Body 21.9 % 10.0-50.0 fluid (test code = 43714-6) Monocytes/100 leukocytes in Blood 3.7 % 3.6-12.0 by Automated count (test code = 5905-5) Eosinophils/100 leukocytes in Blood 5.9 % 0.0-5.4 H by Automated count (test code = 713-8) Basophils/100 leukocytes in 0.5 % 0.0-0.79 Unspecified specimen (test code = 08209-4) [facility]different[facility], [id number] 00:00:00 NeutrophilsBandLymphocyteMonocytePlatelet EstimateMaGreenwood Leflore HospitalRubella virus IgG Ab [Titer] in [id number] 00:00:00 Test Item Value Reference Range Interpretation Comments Rubella virus IgG Ab 56.87 [IU]/mL [Units/volume] in Serum by Immunoassay (test code = 5334-8) [facility] HospitalABO & Rh group [Type] in [id number] 00:00:00 Test Item Value Reference Range Interpretation Comments Rh [Type] in Blood (test code = 4+ 77739-5) ABO and Rh group panel - Blood O positive (test code = 48743-8) [facility] HospitalBlood group antibody screen [Presence] in Serum or Plasma 2018-10-28 00:00:00 Test Item Value Reference Range Interpretation Comments Blood group antibody screen negative [Presence] in Serum or Plasma (test code = 890-4) [facility] HospitalHIV 1+2 Ab [Presence] in [id number] 00:00:00HIV P24 AgHIV-1/2 AbField Memorial Community HospitalHepatitis B virus surface Ag [Presence] in [id number] 00:00:00 Test Item Value Reference Range Interpretation Comments .hepatitis B surface antigen (test negative negative code = .hepatitis B surface antigen) [facility] HospitalReagin Ab [Presence] in Serum by [id number] 00:00:00 Test Item Value Reference Range Interpretation Comments Reagin Ab [Presence] in Serum by nonreactive nonreactive RPR (test code = 98174-1) [facility] W Auto Differential panel - [id number] 00:00:00 Test Item Value Reference Range Interpretation Comments white blood count (test code = 9.2 K/uL 4.0-11.5 white blood count) red blood count (test code = red 4.28 M/uL 3.80-5.20 blood count) Hemoglobin [Mass/volume] in Blood 13.2 g/dL 10.5-15.7 (test code = 718-7) hematocrit (test code = hematocrit) 40.1 % 34.0-50.0 Erythrocyte mean corpuscular volume 93.7 fL 78-98 [Entitic volume] (test code = 61538-9) Erythrocyte mean corpuscular 31.0 pg 26.2-33.4 hemoglobin [Entitic mass] (test code = 59771-0) mean corpuscular HGB conc (test 33.0 g/dL 31.5-36.2 code = mean corpuscular HGB conc) red cell distribution width (test 11.8 % 11.5-15.5 code = red cell distribution width) Platelets [#/volume] in Blood (test 296 K/uL 137-338 code = 97549-3) Platelet mean volume [Entitic 5.9 fL 8.4-11.8 L volume] in Blood (test code = 27010-7) Neutrophils.band form/100 68.1 % 44.4-80.1 leukocytes in Blood (test code = 00635-6) Lymphocytes/100 leukocytes in Body 21.9 % 10.0-50.0 fluid (test code = 29521-5) Monocytes/100 leukocytes in Blood 3.7 % 3.6-12.0 by Automated count (test code = 5905-5) Eosinophils/100 leukocytes in Blood 5.9 % 0.0-5.4 H by Automated count (test code = 713-8) Basophils/100 leukocytes in 0.5 % 0.0-0.79 Unspecified specimen (test code = 08306-9) [facility] Hospitaldifferent[facility] panel, [id number] 00:00:00 NeutrophilsBandLymphocyteMonocytePlatelet EstimateMatagoGreene County HospitalRubella virus IgG Ab [Titer] in [id number] 00:00:00 Test Item Value Reference Range Interpretation Comments Rubella virus IgG Ab 56.87 [IU]/mL [Units/volume] in Serum by Immunoassay (test code = 5334-8) [facility] HospitalABO & Rh group [Type] in [id number] 00:00:00 Test Item Value Reference Range Interpretation Comments Rh [Type] in Blood (test code = 4+ 66882-8) ABO and Rh group panel - Blood O positive (test code = 86112-4) [facility] HospitalBlood group antibody screen [Presence] in Serum or Plasma 2018-10-28 00:00:00 Test Item Value Reference Range Interpretation Comments Blood group antibody screen negative [Presence] in Serum or Plasma (test code = 890-4) [facility]HIV [facility]2 Ab [Presence] in [id number] 00:00:00HIV P24 AgHIV-1/2 AbMaGreenwood Leflore HospitalHepatitis B virus surface Ag [Presence] in [id number] 00:00:00 Test Item Value Reference Range Interpretation Comments .hepatitis B surface antigen (test negative negative code = .hepatitis B surface antigen) [facility] HospitalReagin Ab [Presence] in Serum by [id number] 00:00:00 Test Item Value Reference Range Interpretation Comments Reagin Ab [Presence] in Serum by nonreactive nonreactive RPR (test code = 38235-3) [facility] W Auto Differential panel - [id number] 00:00:00 Test Item Value Reference Range Interpretation Comments white blood count (test code = 9.2 K/uL 4.0-11.5 white blood count) red blood count (test code = red 4.28 M/uL 3.80-5.20 blood count) Hemoglobin [Mass/volume] in Blood 13.2 g/dL 10.5-15.7 (test code = 718-7) hematocrit (test code = hematocrit) 40.1 % 34.0-50.0 Erythrocyte mean corpuscular volume 93.7 fL 78-98 [Entitic volume] (test code = 08915-6) Erythrocyte mean corpuscular 31.0 pg 26.2-33.4 hemoglobin [Entitic mass] (test code = 40075-6) mean corpuscular HGB conc (test 33.0 g/dL 31.5-36.2 code = mean corpuscular HGB conc) red cell distribution width (test 11.8 % 11.5-15.5 code = red cell distribution width) Platelets [#/volume] in Blood (test 296 K/uL 137-338 code = 01123-0) Platelet mean volume [Entitic 5.9 fL 8.4-11.8 L volume] in Blood (test code = 37054-0) Neutrophils.band form/100 68.1 % 44.4-80.1 leukocytes in Blood (test code = 82448-9) Lymphocytes/100 leukocytes in Body 21.9 % 10.0-50.0 fluid (test code = 74338-5) Monocytes/100 leukocytes in Blood 3.7 % 3.6-12.0 by Automated count (test code = 5905-5) Eosinophils/100 leukocytes in Blood 5.9 % 0.0-5.4 H by Automated count (test code = 713-8) Basophils/100 leukocytes in 0.5 % 0.0-0.79 Unspecified specimen (test code = 73641-5) [facility] Hospitaldifferent[facility] panel, [id number] 00:00:00 NeutrophilsBandLymphocyteMonocytePlatelet EstimateMaGreenwood Leflore HospitalRubella virus IgG Ab [Titer] in [id number] 00:00:00 Test Item Value Reference Range Interpretation Comments Rubella virus IgG Ab 56.87 [IU]/mL [Units/volume] in Serum by Immunoassay (test code = 5334-8) [facility] HospitalABO & Rh group [Type] in [id number] 00:00:00 Test Item Value Reference Range Interpretation Comments Rh [Type] in Blood (test code = 4+ 05114-3) ABO and Rh group panel - Blood O positive (test code = 29143-8) [facility] HospitalBlood group antibody screen [Presence] in Serum or Plasma 2018-10-28 00:00:00 Test Item Value Reference Range Interpretation Comments Blood group antibody screen negative [Presence] in Serum or Plasma (test code = 890-4) [facility]HIV [facility] [Presence] in [id number] 00:00:00HIV P24 AgHIV-1/2 AbField Memorial Community HospitalHepatitis B virus surface Ag [Presence] in [id number] 00:00:00 Test Item Value Reference Range Interpretation Comments .hepatitis B surface antigen (test negative negative code = .hepatitis B surface antigen) [facility] HospitalReagin Ab [Presence] in Serum by [id number] 00:00:00 Test Item Value Reference Range Interpretation Comments Reagin Ab [Presence] in Serum by nonreactive nonreactive RPR (test code = 08499-3) [facility] W Auto Differential panel - [id number] 00:00:00 Test Item Value Reference Range Interpretation Comments white blood count (test code = 9.2 K/uL 4.0-11.5 white blood count) red blood count (test code = red 4.28 M/uL 3.80-5.20 blood count) Hemoglobin [Mass/volume] in Blood 13.2 g/dL 10.5-15.7 (test code = 718-7) hematocrit (test code = hematocrit) 40.1 % 34.0-50.0 Erythrocyte mean corpuscular volume 93.7 fL 78-98 [Entitic volume] (test code = 85705-1) Erythrocyte mean corpuscular 31.0 pg 26.2-33.4 hemoglobin [Entitic mass] (test code = 92231-8) mean corpuscular HGB conc (test 33.0 g/dL 31.5-36.2 code = mean corpuscular HGB conc) red cell distribution width (test 11.8 % 11.5-15.5 code = red cell distribution width) Platelets [#/volume] in Blood (test 296 K/uL 137-338 code = 35243-4) Platelet mean volume [Entitic 5.9 fL 8.4-11.8 L volume] in Blood (test code = 23319-2) Neutrophils.band form/100 68.1 % 44.4-80.1 leukocytes in Blood (test code = 13955-4) Lymphocytes/100 leukocytes in Body 21.9 % 10.0-50.0 fluid (test code = 37413-0) Monocytes/100 leukocytes in Blood 3.7 % 3.6-12.0 by Automated count (test code = 5905-5) Eosinophils/100 leukocytes in Blood 5.9 % 0.0-5.4 H by Automated count (test code = 713-8) Basophils/100 leukocytes in 0.5 % 0.0-0.79 Unspecified specimen (test code = 92547-3) [facility]different[facility] panel, [id number] 00:00:00 NeutrophilsBandLymphocyteMonocytePlatelet EstimateMaGreenwood Leflore HospitalRubella virus IgG Ab [Titer] in [id number] 00:00:00 Test Item Value Reference Range Interpretation Comments Rubella virus IgG Ab 56.87 [IU]/mL [Units/volume] in Serum by Immunoassay (test code = 5334-8) [facility] HospitalABO & Rh group [Type] in [id number] 00:00:00 Test Item Value Reference Range Interpretation Comments Rh [Type] in Blood (test code = 4+ 16480-3) ABO and Rh group panel - Blood O positive (test code = 64390-4) [facility] HospitalBlood group antibody screen [Presence] in Serum or Plasma 2018-10-28 00:00:00 Test Item Value Reference Range Interpretation Comments Blood group antibody screen negative [Presence] in Serum or Plasma (test code = 890-4) [facility] GroupHIV [facility] [Presence] in [id number] 00:00:00HIV P24 AgHIV-1/2 AbMaGreenwood Leflore HospitalHepatitis B virus surface Ag [Presence] in [id number] 00:00:00 Test Item Value Reference Range Interpretation Comments .hepatitis B surface antigen (test negative negative code = .hepatitis B surface antigen) [facility] HospitalReagin Ab [Presence] in Serum by [id number] 00:00:00 Test Item Value Reference Range Interpretation Comments Reagin Ab [Presence] in Serum by nonreactive nonreactive RPR (test code = 65637-4) [facility] Grouppregnancy test, [id number] 15:26:00 Test Item Value Reference Range Interpretation Comments Test (test code = positive Test) [facility]pp[facility] test, [id number] 15:26:00 Test Item Value Reference Range Interpretation Comments Test (test code = positive Test) [facility] test, [id number] 15:26:00 Test Item Value Reference Range Interpretation Comments Test (test code = positive Test) [facility] test, [id number] 15:26:00 Test Item Value Reference Range Interpretation Comments Test (test code = positive Test) [facility]
[2020-09-18 16:18] LABS: Absolute Lymphocytes (CBC) 1.5 K/uL (0.7-4.9); Basophils % 0.4 % (0-1.3); Hematocrit 31.4 % (36.0-45.0); Lymphocytes % 26.2 % (15.3-44.8); MPV 7.5 fL (7.6-11.3); RBC Red Blood Cell Count 4.02 M/uL (3.86-4.86)
--- NOTE | 2020-09-18 16:24 | RAD REPORT ---
EXAM DESCRIPTION: RAD - Chest Single View - 09/18/2020 4:12 pm CLINICAL HISTORY: CHEST PAIN COMPARISON: None TECHNIQUE: AP portable chest image was obtained 09/18/2020 4:12 pm . FINDINGS: Lungs are clear. Heart and vasculature are normal. No measurable pleural effusion and no p neumothorax. No acute bony abnormality seen. No acute aortic findings suspected. IMPRESSION: No acute cardiopulmonary process.
[2020-09-18 16:44] LABS: ALT/SGPT 61 U/L (12-78); AST/SGOT 92 U/L (15-37); Alkaline Phosphatase 83 U/L (45-117); BUN Blood Urea Nitrogen 11 mg/dL (7-18); Bicarbonate 30 mmol/L (21-32); Bilirubin Direct 0.1 mg/dL (0-0.2); Bilirubin Total 0.2 mg/dL (0.2-1.0); Glucose Level 92 mg/dL (74-106); Lipase 102 U/L (73-393); Potassium 3.6 mmol/L (3.5-5.1); Protein, Total 7.6 g/dL (6.4-8.2); Sodium Level 140 mmol/L (136-145)
[2020-09-18] MEDS ORDERED: ONDANSETRON 4 MG/2 ML VIAL ONE (17:12)
[2020-09-18] MEDS ORDERED: KETOROLAC 30 MG/ML INJ ONE (17:12)
--- NOTE | 2020-09-18 17:51 | RAD REPORT ---
EXAM DESCRIPTION: CT - Chest For Pe Angio - 09/18/2020 5:32 pm CLINICAL HISTORY: elevated d-dimmer COMPARISON: Chest Single View dated 09/18/2020 TECHNIQUE: Dynamically enhanced 3 mm thick images of the chest were obtained during administration o f approximately 150mL Isovue 370 IV contrast. Coronal and oblique MIP reconstruction images were gene rated and reviewed. Exam utilizes a protocol to evaluate the pulmonary arterial tree. All CT scans are performed using dose optimization technique as appropriate and may include automated exposure control or mA/KV adjustment according to patient size. FINDINGS: No pulmonary emboli are identified. The aorta as imaged shows no acute or suspicious finding. No pericardial thickening or effusion. No infiltrate or mass in the lung parenchyma. No pleural effusion or pleural thickening. No mediastinal or hilar suspicious masses. No chest wall masses or abnormal axillary lymphadenopathy. IMPRESSION: No pulmonary emboli identified. No other significant or suspicious findings.
--- NOTE | 2020-09-18 17:58 | EDPHYS ---
Physician Documentation [facility] Name: Raina Castañeda Age: 25 yrs Sex: Female : 1995 Arrival Date: 09/18/2020 Time: 15:13 Bed 30 Private MD: ED Physician Altaf Lambert HPI: 09/18 16:08 This 25 yrs old Female presents to ER via EMS with complaints of chest pain. rn 16:08 The patient or guardian reports chest pain that is located primarily in the substernal rn area. The pain does not radiate. Associated signs and symptoms: Pertinent positives: nausea, Pertinent negatives: cough, dizziness, headache, palpitations, syncope. The chest pain is described as sharp. Duration: The patient or guardian reports multiple episodes, that are intermittent. Modifying factors: The symptoms are alleviated by nothing. the symptoms are aggravated by nothing. Severity of pain: At its worst the pain was moderate in the emergency department the pain has improved. The patient has experienced similar episodes in the past. The patient has not recently seen a physician. Reports chest pain, intermittent, began 45 min prior to arrival, just signed into rehab facility. Reports last used drugs 8 days ago.. Historical: - Allergies: 15:19 No Known Allergies; aa5 - PMHx: 15:19 Asthma; Drug Abuse; Anxiety; aa5 - Immunization history:: Adult Immunizations unknown. - Social history:: Smoking status: Patient reports the use of cigarette tobacco products, smokes one pack cigarettes per day. - Family history:: not pertinent. - Hospitalizations: : No recent hospitalization is reported. ROS: 16:08 Constitutional: Negative for fever, chills, and weight loss, Eyes: Negative for injury, rn pain, redness, and discharge, Neck: Negative for injury, pain, and swelling, Cardiovascular: Negative for palpitations, and edema, Respiratory: Negative for shortness of breath, cough, wheezing Abdomen/GI: Negative for diarrhea, and constipation, Back: Negative for injury and pain, : Negative for injury, bleeding, discharge, and swelling, MS/Extremity: Negative for injury and deformity, Skin: Negative for injury, rash, and discoloration, Neuro: Negative for headache, weakness, numbness, tingling, and seizure. Exam: 16:08 Constitutional: This is a well developed, well nourished patient who is awake, alert, rn hyperventilating, seems anxious Head/Face: Normocephalic, atraumatic. Eyes: Periorbital areas with no swelling, redness, or edema. Cardiovascular: Regular rate and rhythm. No pulse deficits. Respiratory: + hyperventilating, no retractions Abdomen/GI: soft, non-tender Skin: Warm, dry MS/ Extremity: Pulses equal, no cyanosis. Neuro: Awake and alert, GCS 15 Vital Signs: 15:13 BP 109 / 72; Pulse 77; Resp 20 S; Temp 97.5(O); Pulse Ox 100% on R/A; aa5 17:00 BP 113 / 77; Pulse 80; Resp 16; Pulse Ox 100% on 1 lpm NC; zb 17:56 BP 113 / 77; Pulse 63; Resp 16; Pulse Ox 98% on R/A; zb MDM: 15:14 Patient medically screened. rn 17:55 Differential diagnosis: acute pericarditis, anxiety, chest wall pain, costochondritis, rn esophagitis, gastritis, pericarditis, pleurisy, pneumonia, pneumothorax, pulmonary embolus. Data reviewed: vital signs, nurses notes, lab test result(s), EKG, radiologic studies, CT scan, plain films, and as a result, I will discharge patient. Counseling: I had a detailed discussion with the patient and/or guardian regarding: the historical points, exam findings, and any diagnostic results supporting the discharge/admit diagnosis, lab results, radiology results, the need for outpatient follow up, to return to the emergency department if symptoms worsen or persist or if there are any questions or concerns that arise at home. Response to treatment: the patient's symptoms have mildly improved after treatment, and as a result, I will discharge patient. 17:56 Special discussion: Based on the patient's history, exam, and Dx evaluation, there is rn no indication for emergent intervention or inpatient Tx. It is understood by the patient/guardian that if the Sx's persist or worsen they need to return immediately for re-evaluation. I discussed with the patient/guardian in detail that at this point there is no indication for admission to the hospital. It is understood, however, that if the symptoms persist or worsen the patient needs to return immediately for re-evaluation. ED course: No acute findings in blood/cxr/ct chest.. 18:03 ED course: Pt sleeping comfortably, reports feels much better, no acute findings, will rn dc.. 09/18 15:20 Order name: Basic Metabolic Panel; Complete Time: 16:46 rn 09/18 15:20 Order name: CBC with Diff; Complete Time: 16:33 rn 09/18 15:20 Order name: LFT's; Complete Time: 16:46 rn 09/18 15:20 Order name: XRAY Chest (1 view); Complete Time: 16:33 rn 09/18 15:20 Order name: Lipase; Complete Time: 16:46 rn 09/18 15:20 Order name: D-Dimer; Complete Time: 16:46 rn 09/18 15:20 Order name: EKG; Complete Time: 15:21 rn 09/18 15:20 Order name: Cardiac monitoring; Complete Time: 16:56 rn 09/18 15:20 Order name: EKG - Nurse/Tech; Complete Time: 16:56 rn 09/18 15:20 Order name: IV Saline Lock; Complete Time: 16:56 rn 09/18 15:20 Order name: Labs collected and sent; Complete Time: 16:56 rn 09/18 16:39 Order name: CT Chest For PE Angio; Complete Time: 17:54 aa5 09/18 15:20 Order name: O2 Per Protocol; Complete Time: 16:56 rn 09/18 15:20 Order name: O2 Sat Monitoring; Complete Time: 16:56 rn Administered Medications: 17:00 Drug: TORadol (ketorolac) 30 mg Route: IVP; Site: right antecubital; zb 17:58 Follow up: Response: No adverse reaction; Pain is decreased zb 17:07 Drug: Zofran (Ondansetron) 4 mg Route: IVP; Site: right antecubital; zb 17:58 Follow up: Response: No adverse reaction zb Disposition: 09/18/20 17:57 Discharged to Home. Impression: Chest pain, unspecified. - Condition is Stable. - Discharge Instructions: Nonspecific Chest Pain, Pain Without a Known Cause. - Medication Reconciliation Form, Thank You Letter, Antibiotic Education, Prescription Opioid Use form. - Follow up: Private Physician; When: As needed; Reason: Recheck today's complaints, Re-evaluation by your physician. - Problem is new. - Symptoms have improved. Signatures: Dispatcher [employer] EDAltaf Odonnell MD MD rn Calderon, Audri RN RN Sandrine Harris RN RN zbecky Corrections: (The following items were deleted from the chart) 18:23 17:57 09/18/2020 17:57 Discharged to Home. Impression: Chest pain, unspecified. zb Condition is Stable. Forms are Medication Reconciliation Form, Thank You Letter, Antibiotic Education, Prescription Opioid Use. Follow up: Private Physician; When: As needed; Reason: Recheck today's complaints, Re-evaluation by your physician. Problem is new. Symptoms have improved. rn
--- NOTE | 2020-09-18 17:58 | ER ---
Nurse's Notes [facility] Name: Raina Castañeda Age: 25 yrs Sex: Female : 1995 Arrival Date: 09/18/2020 Time: 15:13 Bed 30 Private MD: Diagnosis: Chest pain, unspecified Presentation: 09/18 15:13 Chief complaint: Patient states: abdominal pain and vomiting. Pt reports being at [address] [facility] for methamphetamine abuse. 15:13 Coronavirus screen: nausea, vomiting. Ebola Screen: Patient negative for fever greater aa5 than or equal to 101.5 degrees Fahrenheit, and additional compatible Ebola Virus Disease symptoms. Initial Sepsis Screen: Does the patient meet any 2 criteria? No. Patient's initial sepsis screen is negative. Does the patient have a suspected source of infection? No. Patient's initial sepsis screen is negative. Risk Assessment: Do you want to hurt yourself or someone else? Patient reports no desire to harm self or others. Onset of symptoms was September 2020. 15:13 Acuity: PEGGY 3 aa5 15:13 Method Of Arrival: EMS: [facility] aa5 Triage Assessment: 18:20 General: Behavior is calm. zb Historical: - Allergies: 15:19 No Known Allergies; aa5 - PMHx: 15:19 Asthma; Drug Abuse; Anxiety; aa5 - Immunization history:: Adult Immunizations unknown. - Social history:: Smoking status: Patient reports the use of cigarette tobacco products, smokes one pack cigarettes per day. - Family history:: not pertinent. - Hospitalizations: : No recent hospitalization is reported. Screenin:50 Abuse screen: unable to screen at this time. Nutritional screening: No deficits noted. zb Tuberculosis screening: No symptoms or risk factors identified. Fall Risk None identified. Assessment: 15:15 General: Appears uncomfortable, malnourished, Reports feeling ill for 0-12 hours. Pain: zb Complains of pain in chest and abdomen Pain does not radiate. Pain currently is 9 out of 10 on a pain scale. Neuro: Level of Consciousness is awake, alert, obeys commands, Oriented to Appropriate for age. Cardiovascular: Reports chest pain, nausea, vomiting, Patient's skin is warm and dry. Rhythm is sinus rhythm Chest pain is described as diffuse. Respiratory: Airway is patent Respiratory effort is even, unlabored, Respiratory pattern is tachypnea. GI: Abdomen is flat, Bowel sounds present X 4 quads. Abdomen is tender to palpation X 4 quads. Guarding noted Reports nausea, vomiting. :. Derm: Skin is thin, Skin is moist, Skin is normal. Musculoskeletal: Circulation, motion, and sensation intact. Range of motion: intact in all extremities. 15:50 Reassessment: chest x-ray at bedside. zb 16:00 Reassessment: patient placed on 1l NC for comfort. zb 16:30 Reassessment: Patient appears in no apparent distress at this time. Patient and/or zb family updated on plan of care and expected duration. Pain level reassessed. Patient is alert, oriented x 3, equal unlabored respirations, skin warm/dry/pink. patient c/o of pain/ nausea. notified ECP. medication ordered. 17:24 Reassessment: Patient appears in no apparent distress at this time. Patient and/or zb family updated on plan of care and expected duration. Pain level reassessed. Patient is alert, oriented x 3, equal unlabored respirations, skin warm/dry/pink. patient appears to be sleeping at this time. 17:57 Reassessment: dr. lambert at bedside. zb 18:06 Reassessment: calling [facility] at the moment. number for kushal not in service. 1st zb attempt to call [facility]. 18:09 Reassessment: 2nd attempt to call [facility] no answer. zb 18:22 Reassessment: reached out to k[facility]al to call for a ride for patient. d/c instructions zb given to patient. gait even and steady. Vital Signs: 15:13 BP 109 / 72; Pulse 77; Resp 20 S; Temp 97.5(O); Pulse Ox 100% on R/A; aa5 17:00 BP 113 / 77; Pulse 80; Resp 16; Pulse Ox 100% on 1 lpm NC; zb 17:56 BP 113 / 77; Pulse 63; Resp 16; Pulse Ox 98% on R/A; zb ED Course: 15:13 Patient arrived in ED. aa5 15:13 Arm band placed on Patient placed in an exam room, on a stretcher. aa5 15:14 Altaf Lambert MD is Attending Physician. rn 15:14 EKG done, by ED staff, reviewed by lAtaf Lambert MD. zb 15:16 Triage completed. aa5 15:50 Sandrine Lombardo, RN is Primary Nurse. zb 15:51 Patient has correct armband on for positive identification. Bed in low position. Call zb light in reach. Side rails up X2. pension fund manager on. Pulse ox on. NIBP on. Door closed. Noise minimized. 16:00 Inserted saline lock: 22 gauge in right antecubital area, using aseptic technique. zb Blood collected. 16:12 XRAY Chest (1 view) In Process Unspecified. EDMS 16:28 contact from banner....[facility] [phone]. bd 17:32 CT Chest For PE Angio In Process Unspecified. EDMS 18:20 No provider procedures requiring assistance completed. IV discontinued, intact, zb bleeding controlled, No redness/swelling at site. Administered Medications: 17:00 Drug: TORadol (ketorolac) 30 mg Route: IVP; Site: right antecubital; zb 17:58 Follow up: Response: No adverse reaction; Pain is decreased zb 17:07 Drug: Zofran (Ondansetron) 4 mg Route: IVP; Site: right antecubital; zb 17:58 Follow up: Response: No adverse reaction zb Outcome: 17:57 Discharge ordered by . rn 18:20 Discharged to Rehab Facility zb 18:20 Condition: stable 18:20 Discharge instructions given to patient, Instructed on discharge instructions, follow up and referral plans. Demonstrated understanding of instructions, follow-up care. 18:23 Patient left the ED. zb Signatures: Dispatcher [employer] EDUT Monica Gary Roman, MD MD rn Calderon, Audri, RN RN aaSandrine Mooney, MARTÍN RN zb Corrections: (The following items were deleted from the chart) 17:58 17:58 Response: No adverse reaction zb zb
[2020-09-18 18:28] VITALS: TEMP 97.5
[2020-09-18 18:29] VITALS: BP 113/77
[2020-09-18 18:30] VITALS: O2SAT 98
--- NOTE | 2020-09-19 12:53 | EKG ---
Test Date: 2020-09-18 Test Time: 15:25:36 Cash Room Clerk: HOLGER MEASUREMENT RESULTS: Intervals: Rate: 76 AR: 172 QRSD: 78 QT: 414 QTc: 465 [place]: P: 74 AR: 172 QRS: 81 T: 75 INTERPRETIVE STATEMENTS: Normal sinus rhythm Normal ECG No previous ECG available for comparison Electronically Signed On 09-19-20 12:51:42 CDT by Rigo Pires
== END 2020-09-18 18:23 | disposition home or self-care (01) ==
LOC: ER 15:08
DX: R07.9 Chest pain, unspecified (principal); F17.210 Nicotine dependence, cigarettes, uncomplicated
CPT/HCPCS: 93005; 85025; 80048; 36415; 85379; 80076; 83690; 71275; 71045; Q9967; J2405; 96374; 96375; 99285